=== PATIENT | male | born 1950 | race Caucasian/White ===

== ENCOUNTER 2017-05-12 11:58 | Emergency (ER) | payer OTHER ==
[~2017-05-12] VITALS: Wt 93.4 kg
--- NOTE | 2017-05-12 14:05 | ERD ---
ER Documentation Chief Complaint Chief Complaint LAC ON LEFT UPPER BACK FROM BROKEN GLASS, BANDAGED AT HOME HPI This 67-year-old male was moving his refrigerator and accidentally a piece of glass fell and cut his left upper thoracic spine. He now has a laceration there. Does not believe the foreign body left. Pain is mild to moderate. He got a tetanus vaccination within the last 2 years. ROS All systems reviewed and are negative except as per history of present illness. FmHx Family History: diabetes Physical Exam Vitals Vital Signs Date Time Temp Pulse Resp B/P Pulse Ox O2 Delivery O2 Flow Rate FiO2 05/12/17 11:59 97.9 92 18 147/75 97 Physical Exam Const: [] Head: Atraumatic Eyes: Normal Conjunctiva ENT: Normal External Ears, Nose and Mouth. Neck: Full range of motion..~ No meningismus. Resp: Clear to auscultation bilaterally Cardio: Regular rate and rhythm, no murmurs Skin: Laceration to the left thoracic spine linear approximately 3 cm in length, no evidence of retained foreign body Procedures/MDM Patient presents with laceration to left back. No evidence of retained foreign body. X-rays negative for foreign body or fracture. His tetanus is up-to- date. The wound was clean with normal saline and then Dermabond and Steri- Strips were used to close the wound. Patient tolerated the procedure well and there were no complications. The wound was then dressed and bandaged and he should return in 2 days for wound check and was counseled on signs and symptoms of wound infection. Patient counseled regarding my diagnostic impression and care plan. Prior to discharge all questions answered. Pt agrees with treatment plan and understands strict return precautions. Pt is instructed to follow up with primary care provider within 24-48 hours. Precautionary instructions provided including instructions to return to the ER if not improving or for any worsening or changing symptoms or concerns. Departure Diagnosis: Primary Impression: Laceration Condition: Stable MARIANGEL LAROSE PA-C May 12, 2017 14:05
--- NOTE | 2017-05-12 14:46 | RADRPT ---
PROCEDURE: XR Thoracic Spine. CLINICAL INDICATION: Penetrating trauma. Back pain. TECHNIQUE: Three views. Frontal, lateral, and lateral swimmers. COMPARISON: None available FINDINGS: There is normal stature and alignment of the vertebrae. There is no fracture. There is no lytic or blastic lesion. There is flowing ossification along the anterolateral aspect of 6 contiguous lower thoracic vertebra l bodies, with preservation of disk height consistent with diffuse idiopathic skeletal hyperostosis (DISH). The paravertebral soft tissues are unremarkable. There is no radiopaque foreign body. IMPRESSION: 1. Diffuse idiopathic skeletal hyperostosis. 2. No radiopaque foreign body. 3. Otherwise unremarkable images of the thoracic spine. RPTAT: QQ .Kvng Stein MD, MD Date Time Electronically viewed and signed by .Kvng Stein MD, on 05/12/2017 14:45 .R/
== END 2017-05-12 15:00 | disposition home or self-care (01) ==
LOC: FTE 11:58
DX: S21.91XA Laceration without foreign body of unspecified part of thorax, initial encounter (principal); W25.XXXA Contact with sharp glass, initial encounter; Y92.9 Unspecified place or not applicable
CPT/HCPCS: 72072

== ENCOUNTER 2018-03-20 17:23 | Emergency (ER) | END 2018-03-20 21:59 | disposition home or self-care (01) ==

== ENCOUNTER 2018-05-02 15:49 | Emergency (ER) | END 2018-05-02 18:08 | disposition home or self-care (01) ==